=== PATIENT | female | born 1995 | race African-American/Black ===

== ENCOUNTER 2018-09-26 12:29 | Emergency (ER) | payer MEDICAID ==
[~2018-09-26] VITALS: Ht 154.9 cm; Wt 49.8 kg
[2018-09-26] MEDS ORDERED: ACETAMINOPHEN 325MG TABLET PO ONE (13:15)
[2018-09-26 13:34] VITALS: BP 133/74
== END 2018-09-26 13:35 | disposition home or self-care (01) ==
LOC: ER 12:29
DX: O26.891 Other specified pregnancy related conditions, first trimester (principal); H92.01 Otalgia, right ear; F17.200 Nicotine dependence, unspecified, uncomplicated; Z3A.09 9 weeks gestation of pregnancy
CPT/HCPCS: 81025; 93005; 99283